=== PATIENT | female | born 1955 | race Two or more races ===

== ENCOUNTER → 2024-04-17 | Outpatient (CLI) | payer MEDICARE, SELFPAY ==
[2024-04-17 11:13] LABS: Alanine Aminotransferase 14 U/L (10-49); Albumin, Serum 4.6 gm/dL (3.4-4.8); Albumin/Globulin Ratio 1.7 (1.2-2.2); Alkaline Phosphatase 76 U/L (46-116); Anion Gap 6 (7-16); Aspartate Amino Transferase 19 U/L (0-34); BUN/Creatinine Ratio 16 Ratio (12-20); Bilirubin,Total 0.3 mg/dL (0.3-1.2); Blood Urea Nitrogen 16 mg/dL (9-23); Calcium 9.5 mg/dL (8.3-10.6); Calcium (Corrected) 9.5 mg/dL (8.5-10.1); Carbon Dioxide 24.7 mMol/L (20.0-31.0); Cardiac Risk Estimate 3.3 RATIO (3.7-5.6); Chloride 108 mMol/L (98-107); Cholesterol 127 mg/dL (132-200); Globulin 2.7 gm/dL (2.3-3.5); Glucose 129 mg/dL (74-106); HDL Cholesterol 39 mg/dL (40-60); LDL Cholesterol,Calculated 63 mg/dL (0-130); Osmolality,Calculated 280 (275-295); Potassium 4.6 mMol/L (3.4-5.1); Sodium 139 mMol/L (136-145); Total Protein 7.3 gm/dL (5.7-8.2); Triglycerides 127 mg/dL (30-150); eGFR > 60 See Note
== END | disposition home or self-care (01) ==
LOC: COPL 09:23
PROVIDERS: PCP Internal Medicine; Referring Provider Internal Medicine; Visit Provider Internal Medicine
DX: E78.2 Mixed hyperlipidemia (principal)
CPT/HCPCS: 36415; 80053; 80061

== ENCOUNTER → 2024-08-30 | Outpatient (CLI) | payer MEDICARE, SELFPAY ==
[2024-08-30 08:54] LABS: Alanine Aminotransferase 16 U/L (10-49); Albumin, Serum 4.3 gm/dL (3.4-4.8); Albumin/Globulin Ratio 1.5 (1.2-2.2); Alkaline Phosphatase 83 U/L (46-116); Anion Gap 5 (7-16); Aspartate Amino Transferase 21 U/L (0-34); BUN/Creatinine Ratio 17 Ratio (12-20); Bilirubin,Total 0.3 mg/dL (0.3-1.2); Blood Urea Nitrogen 17 mg/dL (9-23); Calcium 9.6 mg/dL (8.3-10.6); Calcium (Corrected) 9.6 mg/dL (8.5-10.1); Carbon Dioxide 25.4 mMol/L (20.0-31.0); Cardiac Risk Estimate 2.9 RATIO (3.7-5.6); Chloride 110 mMol/L (98-107); Cholesterol 133 mg/dL (132-200); Globulin 2.9 gm/dL (2.3-3.5); Glucose 111 mg/dL (74-106); HDL Cholesterol 46 mg/dL (40-60); LDL Cholesterol,Calculated 60 mg/dL (0-130); Osmolality,Calculated 281 (275-295); Potassium 4.7 mMol/L (3.4-5.1); Sodium 140 mMol/L (136-145); Total Protein 7.2 gm/dL (5.7-8.2); Triglycerides 134 mg/dL (30-150); Uric Acid 4.3 mg/dL (3.1-7.8); eGFR > 60 See Note
== END | disposition home or self-care (01) ==
LOC: COPL 07:55
PROVIDERS: PCP Internal Medicine; Referring Provider Internal Medicine; Visit Provider Internal Medicine
DX: E78.2 Mixed hyperlipidemia (principal); E79.0 Hyperuricemia without signs of inflammatory arthritis and tophaceous disease
CPT/HCPCS: 36415; 80053; 80061; 84550

== ENCOUNTER → 2024-12-31 | Outpatient (CLI) | payer MEDICARE, SELFPAY ==
--- NOTE | 2024-12-31 08:50 | EKG_ITS ---
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
[2024-12-31 09:11] LABS: Basophils # (Auto) 0.1 Thou/mm3 (0.0-0.2); Basophils % (Auto) 1 % (0-2.5); Eosinophils # (Auto) 0.5 Thou/mm3 (0.0-0.5); Eosinophils % (Auto) 4 % (0-10); Hematocrit 41.1 % (36.0-46.0); Hemoglobin 13.6 g/dL (12.0-16.0); Immature Granulocytes Auto 0.06 Thou/mm3 (0.00-0.00); Lymphocytes # (Auto) 4.2 Thou/mm3 (1.0-4.8); Lymphocytes % (Auto) 33 % (10-50); Mean Corpuscular HGB Conc 33.1 g/dl (31.0-37.0); Mean Corpuscular Hemoglobin 31.6 pg (25.0-35.0); Mean Corpuscular Volume 95 fL (80-100); Monocytes # (Auto) 0.9 Thou/mm3 (0.0-0.8); Monocytes % (Auto) 7 % (0-12); Neutrophils # (Auto) 7.1 Thou/mm3 (1.8-7.7); Neutrophils % (Auto) 55 % (37-80); Nucleated Red Blood Cell # 0.00 Thou/mm3 (0.00-0.00); Nucleated Red Blood Cell % 0 /100 WBC (0); Platelet Count 220 Thou/mm3 (140-440); RDW Standard Deviation 50.2 fL (36.4-46.3); Red Blood Count 4.31 Miln/mm3 (4.00-5.20); White Blood Count 13.0 Thou/mm3 (3.6-11.0)
[2024-12-31 09:26] LABS: INR 1.0 (0.9-1.3); Partial Thromboplastin Time 30.5 Seconds (22.0-36.0); Prothrombin Time 10.5 Seconds (9.0-12.2)
[2024-12-31 09:28] LABS: Alanine Aminotransferase 13 U/L (10-49); Albumin, Serum 4.4 gm/dL (3.4-4.8); Albumin/Globulin Ratio 1.5 (1.2-2.2); Alkaline Phosphatase 101 U/L (46-116); Anion Gap 6 (7-16); Aspartate Amino Transferase 19 U/L (0-34); BUN/Creatinine Ratio 21 Ratio (12-20); Bilirubin,Total 0.2 mg/dL (0.3-1.2); Blood Urea Nitrogen 19 mg/dL (9-23); Calcium 9.8 mg/dL (8.3-10.6); Calcium (Corrected) 9.8 mg/dL (8.5-10.1); Carbon Dioxide 23.9 mMol/L (20.0-31.0); Chloride 113 mMol/L (98-107); Creatinine (Component) 0.9 mg/dL (0.6-1.3); Globulin 2.9 gm/dL (2.3-3.5); Glucose 103 mg/dL (74-106); Osmolality,Calculated 287 (275-295); Potassium 4.4 mMol/L (3.4-5.1); Sodium 143 mMol/L (136-145); Total Protein 7.3 gm/dL (5.7-8.2); eGFR > 60 See Note
== END | disposition home or self-care (01) ==
PROVIDERS: PCP Internal Medicine; Referring Provider Surgery Vascular Surgery; Visit Provider Surgery Vascular Surgery
DX: Z01.818 Encounter for other preprocedural examination (principal); I73.9 Peripheral vascular disease, unspecified; Z79.01 Long term (current) use of anticoagulants; Z01.810 Encounter for preprocedural cardiovascular examination
CPT/HCPCS: 36415; 80053; 85025; 85610; 85730; 93005